=== PATIENT | male | born 1995 | race Two or more races ===

== ENCOUNTER 2020-05-28 20:29 | Emergency (ER) | payer MEDICAID, OTHER ==
[~2020-05-28] VITALS: Ht 175.3 cm; Wt 54.4 kg
--- NOTE | 2020-05-28 20:30 | NUR ---
PT BIBRA 878 FOR ANXIETY. PER PT"I WAS DIAGNOSED W/ BIPOLAR AND I NEED MEDICATION REFILLS". PT DENIES SI/HI. SAFETY PRECAUTIONS IMPLEMENTED. SITTER AT BEDSIDE. PT AAOX4, VSS, RESPIRATIONS EVEN AND UNLABORED ON RA W/ NAD NOTED. PT CONNECTED TO THE MONITOR AND POX. WILL CONTINUE TO MONITOR
--- NOTE | 2020-05-28 21:07 | NUR ---
[employer] AT THE BED SIDE. REPORTED PT HAS DENIED SI/HI AND IS NOT ON HOLD
--- NOTE | 2020-05-28 21:24 | NUR ---
[employer] at bedside for blood draw
[2020-05-28 21:35] LABS: BASOPHILS % (AUTO) 0.3 % (0.0-2.0); EOSINOPHILS % (AUTO) 2.4 % (0.0-6.0); HEMATOCRIT 39 % (39-51); HEMOGLOBIN 13.2 g/dL (13.5-17.5); LYMPHOCYTES # (AUTO) 2.4 /CMM (0.8-4.8); MEAN CORPUSCULAR HGB CONC 34 g/dl (31.0-36.0); MEAN CORPUSCULAR VOLUME 89 fL (80-96); MONOCYTES # (AUTO) 0.7 /CMM (0.1-1.30); MONOCYTES % (AUTO) 8.3 % (2.0-12.0); NEUTROPHILS # (AUTO) 4.9 /CMM (1.8-8.9); PLATELET COUNT (AUTO) 269 /CMM (150-450); RED BLOOD CELL COUNT(AUTO) 4.42 MIL/uL (4.5-6.0); WHITE BLOOD COUNT (AUTO) 8.2 K/uL (4.3-11.0)
[2020-05-28 21:45] LABS: CALCIUM, SERUM 8.8 mg/dL (8.5-10.1); CARBON DIOXIDE 24 mmol/L (21-32); CHLORIDE 103 mmol/L (98-107); CREATININE 1.1 mg/dL (0.6-1.3); GLUCOSE 97 mg/dL (74-106); POTASSIUM 3.9 mmol/L (3.5-5.1); SODIUM SERUM 136 mmol/L (136-145); UREA NITROGEN, BLOOD 20 mg/dL (7-18)
[2020-05-28 21:51] LABS: ALANINE AMINOTRANSFERASE 32 U/L (12-78); ALBUMIN 4.1 g/dL (3.4-5.0); ALCOHOL, BLOOD < 3 mg/dL (0-0); ALKALINE PHOSPHATASE 81 U/L (46-116); ASPARTATE AMINOTRANSFERASE 27 U/L (15-37); BILIRUBIN,DIRECT 0.2 mg/dL (0.0-0.2); BILIRUBIN,TOTAL 0.8 mg/dL (0.2-1.0); TOTAL PROTEIN, SERUM 7.1 g/dL (6.4-8.2)
[2020-05-28 22:07] LABS: ACETAMINOPHEN 0 ug/ml (10-30)
--- NOTE | 2020-05-28 22:09 | NUR ---
PT STILL UNABLE TO PROVIDE URINE AT THIS TIME
[2020-05-28 22:11] LABS: SALICYLATE < 0.2 mg/dL (2.8-20.0)
[2020-05-28] MEDS ORDERED: OLANZAPINE 10 MG VIAL IM ONE ×2 (22:23→22:30)
--- NOTE | 2020-05-28 23:29 | NUR ---
URINE SENT TO LAB
[2020-05-28 23:31] LABS: APPEARANCE,URINE CLEAR (CLEAR); BILIRUBIN,URINE NEGATIVE (NEGATIVE); BLOOD, URINE NEGATIVE Ery/uL (NEGATIVE); COLOR,URINE YELLOW (YELLOW); KETONES,URINE TRACE (NEGATIVE); LEUKOCYTE ESTERASE ,URINE NEGATIVE (NEGATIVE); NITRITE, URINE NEGATIVE (NEGATIVE); PROTEIN,URINE NEGATIVE (NEGATIVE); UGLUCOSE NEGATIVE (NEGATIVE); UROBILINOGEN,URINE 0.2 EU/dL (0.2)
[2020-05-28 23:46] LABS: BACTERIA,URINE None seen /HPF (None Seen); RBC,URINE 0-2 /HPF (0-2); WBC,URINE 0-2 /HPF (0-3)
[2020-05-28 23:47] LABS: SQUAMOUS EPITHELIAL CELL,UR Few /HPF (None Seen)
--- NOTE | 2020-05-29 00:46 | NUR ---
Valarie- Crisis evaultor paged.
--- NOTE | 2020-05-29 03:25 | NUR ---
PT RESTING COMFORTBALY IN BED. NAD NOTED. VSS. SITTER AT BEDSIDE FOR SAFETY
--- NOTE | 2020-05-29 05:51 | NUR ---
PT RESTING COMFORTABLY IN BED. SITTER AT BEDSIDE FOR SAFETY AND CONSTANT MONITORING. VSS. NO ACUTE DISTRESS NOTED.
--- NOTE | 2020-05-29 06:59 | NUR ---
PT IN BED RESTING, PROVIDED WITH CRACKERS AND BLANKETS.
--- NOTE | 2020-05-29 09:42 | NUR ---
PT PROVIDED W/ FOOD TRAY. NO ACUTE DISTRESS NOTED. SITTER AT BEDSIDE FOR SAFETY
--- NOTE | 2020-05-29 09:55 | NUR ---
JOSHUA ROUTEMAN PAGED,PHONE FULL, UNABLE TO ACCEPT MESSAGES
--- NOTE | 2020-05-29 10:02 | NUR ---
CHERI PERKINS CALLED AND FARTUN PERKINS WILL COME INSTEAD BUT MIGHT BE DALAYED
[2020-05-29] MEDS ORDERED: ARIPIPRAZOLE 5 MG TABLET PO ONE (11:00)
[2020-05-29 16:59] VITALS: BP 100/55
--- NOTE | 2020-05-29 16:59 | NUR ---
patient discharged in stable condition. Picked up by friend [place] in no distress.
== END 2020-05-29 16:59 | disposition home or self-care (01) ==
LOC: ER 20:31
DX: F41.9 Anxiety disorder, unspecified (principal); F31.9 Bipolar disorder, unspecified; F17.200 Nicotine dependence, unspecified, uncomplicated; F19.10 Other psychoactive substance abuse, uncomplicated
CPT/HCPCS: 36415; 80048; 80076; 80305; 80307; 80329; 81001; 85025; 96372; 99285; G0480; J3490; 81000-TC